=== PATIENT | male | born 1985 ===

== ENCOUNTER 2019-11-14 13:50 | Emergency (ER) | payer BC ==
[2019-11-14 14:04] VITALS: PULSE 118
[2019-11-14 14:06] VITALS: BP 146/105
[2019-11-14 15:20] LABS: BLOOD UREA NITROGEN,BUN 12 mg/dL (7.0-18.0); CARBON DIOXIDE,CO2 27.6 mmol/L (21.0-32.0); CHLORIDE,CL 102 mmol/L (98-107); GLUCOSE RANDOM 107 mg/dL (74-106); POTASSIUM,K 3.8 mmol/L (3.5-5.1); SODIUM,NA 139 mmol/L (136-148)
--- NOTE | 2019-11-14 15:25 | CR ---
Chest: Frontal view of the chest was obtained. Comparison: No prior chest imaging. Heart size and mediastinum are normal. Lung markings are mildly increased believed to relate to patient body habitus. Lungs otherwise are clear. Bony structures are grossly intact. Impression: 1. Findings as noted above. 2. Nothing acute is suspected on frontal chest x-ray. Diagnostic code #2 This report was dictated in [place] Standard Time
--- NOTE | 2019-11-14 15:25 | CR ---
Right tibia and fibula: 2 views of the right tibia and fibula were obtained. Details are somewhat diminished secondary to body habitus. Medial joint space narrowing is seen. Osteophytes are noted off the lateral joint. No discrete fracture or other bony abnormality is appreciated. Impression: 1. Somewhat limited study. 2. Degenerative change within the knee. 3. Nothing acute is appreciated on right tibia and fibula study. Diagnostic code #2 This report was dictated in [place] Standard Time
== END 2019-11-14 17:44 | disposition left against medical advice (07) ==
LOC: MW.ED 13:50
DX: Z53.21 Procedure and treatment not carried out due to patient leaving prior to being seen by health care provider (principal)
CPT/HCPCS: 36415; 71045; 71045-26; 73590-26-RT; 73590-RT; 80053; 83880; 85025; 93005; 99283

== ENCOUNTER 2019-11-14 22:32 | Emergency (ER) | payer BC ==
--- NOTE | 2019-11-15 00:25 | EDM.PDOC ---
ED HPI GENERAL MEDICAL PROBLEM - General Chief Complaint: Skin Complaint Stated Complaint: WOUND ON RIGHT LOWER LEG Time Seen by Provider: 11/15/19 00:10 Source of Information: Reports: Patient History Limitations: Reports: No Limitations - History of Present Illness INITIAL COMMENTS - FREE TEXT/NARRATIVE: [id number] gentleman is presenting to the emergency room with a chief complaint of his legs bleeding. Patient was seen earlier had a bladder labs done and decided to leave. Patient's labs look appropriate patient is not anemic patient is not bleeding at this time. Patient is chronically large legs with ulcers on the side of his lower legs. Patient has some redness at this time patient states he might have scratched gripped his leg on some concrete. Patient denies chills and fever or shortness of breath Onset: Today Duration: Hour(s):, Improving Location: Reports: Upper Extremity, Right, Lower Extremity, Left Quality: Reports: Same as Previous Episode Severity: Mild Improves with: Reports: Rest Worsens with: Reports: None Associated Symptoms: Reports: No Other Symptoms Right Lower Leg Pain Score (Numeric/FACES): 3 - Related Data Allergies Allergy/AdvReac Type Severity Reaction Status Date / Time No Known Allergies Allergy Verified 11/14/19 14:04 Home Meds: Home Meds Ibuprofen [Advil] 3 tab PO DAILY 11/14/19 [History] cephALEXin [Keflex] 500 mg PO Q8H #30 cap 11/15/19 [Rx] Past Medical History - Past Health History Medical/Surgical History: Denies Medical/Surgical History - Infectious Disease History Infectious Disease History: Reports: Chicken Pox - Past Surgical History HEENT Surgical History: Reports: Adenoidectomy Social & Family History - Family History Family Medical History: Noncontributory - Tobacco Use Smoking Status *Q: Current Every Day Smoker Years of Tobacco use: 15 Packs/Tins Daily: 2 - Caffeine Use Caffeine Use: Reports: Energy Drinks - Recreational Drug Use Recreational Drug Use: No ED ROS GENERAL - Review of Systems Review Of Systems: See Below Constitutional: Reports: No Symptoms HEENT: Reports: No Symptoms Respiratory: Reports: No Symptoms Cardiovascular: Reports: Edema Endocrine: Reports: No Symptoms GI/Abdominal: Reports: No Symptoms : Reports: No Symptoms Musculoskeletal: Reports: Leg Pain Skin: Reports: Wound Neurological: Reports: No Symptoms Psychiatric: Reports: No Symptoms Hematologic/Lymphatic: Reports: No Symptoms Immunologic: Reports: No Symptoms ED EXAM, SKIN/RASH Exam: See Below Text/Narrative:: Presents with bleeding on lower right leg. Patient also has a sore on his left lower leg. Patient has extreme edema to both legs. Ulcer which bled out is not actively bleeding at this time. Exam Limited By: No Limitations General Appearance: Alert, WD/WN, No Apparent Distress Ears: Normal External Exam, Normal Canal, Hearing Grossly Normal, Normal TMs Nose: Normal Inspection, Normal Mucosa Throat/Mouth: Normal Inspection, Normal Lips, Normal Oropharynx, No Airway Compromise. No: Normal Teeth Head: Atraumatic, Normocephalic Neck: Normal Inspection, Supple, Non-Tender Respiratory/Chest: No Respiratory Distress, Lungs Clear, Normal Breath Sounds, No Accessory Muscle Use, Chest Non-Tender Cardiovascular: Normal Peripheral Pulses, Regular Rate, Rhythm. No: No Edema GI/Abdominal: Normal Bowel Sounds, Soft, Non-Tender, No Abnormal Bruit (Male) Exam: No Hernia, Normal Inspection Back Exam: Normal Inspection, Full Range of Motion Extremities: Pedal Edema, Other (Bilateral lower leg edema. Patient is overweight with a BMI of 63.3./Patient has ulcers and venous stasis not actively bleeding.) Neurological: Alert, Oriented, Normal Reflexes Psychiatric: Normal Affect Location, Skin: Upper Extremity, Left, Lower Extremity, Right Associated features: Tenderness, Swelling, Induration Course - Vital Signs Last Recorded V/S: Last Vital Signs Temp 96.9 F 11/14/19 22:36 Pulse 111 H 11/14/19 22:36 Resp 26 H 11/14/19 22:36 BP 162/99 H 11/14/19 22:36 Pulse Ox 99 11/14/19 22:36 Departure - Departure Time of Disposition: 00:33 Disposition: Home, Self-Care 01 Condition: Good Clinical Impression: Stasis dermatitis of right lower extremity due to peripheral venous hypertension, Stasis dermatitis of lower extremity due to chronic peripheral vascular hypertension - Discharge Information Referrals: PCP,Unknown [Primary Care Provider] - Sepsis Event Note - Evaluation Sepsis Screening Result: No Definite Risk - Focused Exam Vital Signs: Vital Signs Temp Pulse Resp BP Pulse Ox 11/14/19 22:36 96.9 F 111 H 26 H 162/99 H 99 Date Exam was Performed: 11/15/19 Time Exam was Performed: 00:19
[2019-11-15 01:15] VITALS: BP 141/81; PULSE 93
== END 2019-11-15 01:04 | disposition home or self-care (01) ==
LOC: MW.ED 22:32
DX: I87.2 Venous insufficiency (chronic) (peripheral) (principal); I87.313 Chronic venous hypertension (idiopathic) with ulcer of bilateral lower extremity; L97.829 Non-pressure chronic ulcer of other part of left lower leg with unspecified severity; L97.819 Non-pressure chronic ulcer of other part of right lower leg with unspecified severity; F17.210 Nicotine dependence, cigarettes, uncomplicated; E66.3 Overweight; Z68.44 Body mass index [BMI] 60.0-69.9, adult
CPT/HCPCS: 99282